=== PATIENT | male | born 1955 | race Caucasian/White ===

== ENCOUNTER 2017-09-11 14:47 | Outpatient (CLI) | payer BC ==
--- NOTE | 2017-09-11 21:57 | MRI ---
THORACIC SPINE MRI WITH AND WITHOUT CONTRAST: Clinical history: Muscle weakness, upper and lower extremity. Myelopathy. FINDINGS: There is a maintained vertebral body height and alignment. No acute disc space inflammation. Thoraci c spine cord is appropriate in caliber and contour. No expansile cord lesion of the thoracic spine o r evidence of intramedullary pathologic enhancement. There is a subcentimeter focus of oval shaped s ignal alteration on the posterior subcutaneous region most compatible with a Sebaceous cyst. This is located at the upper thorax. No significant central canal or foraminal stenosis. IMPRESSION: No acute abnormality of thoracic spine. POS: [facility]
--- NOTE | 2017-09-11 22:19 | MRI ---
LUMBAR SPINE MRI WITH AND WITHOUT CONTRAST: Indication: Weakness, lumbar spondylosis. FINDINGS: No acute marrow edema or compression deformity of the lumbar spine. No acute inflammation. Conus med ullaris demonstrates normal morphology terminating at the T12-L1 level. Mild ventral CSF effacement is the result of multilevel disc bulge formation without high grade central canal stenosis. At the L1-2 through L4-5 level, no high grade neural foraminal stenosis. At the L5-S1 level there is moderate right foraminal stenosis as a result of disc osteophyte complex and facet hypertrophy. This does crowd the traversing right L5 nerve root. No pathologic intramedullary enhancement of the conus medullaris or along the cauda equina. IMPRESSION: 1. Degenerative change of the lumbar spine as above. 2. Otherwise, no acute process is seen. POS: [facility]
--- NOTE | 2017-09-11 23:10 | MRI ---
MRI CERVICAL SPINE WITH AND WITHOUT CONTRAST: Clinical history: Muscle weakness. Cervical spondylosis. FINDINGS: There is mild interspersed intermedullary T2 hypertense cervical spinal cord without evidence of pos t contrast enhancement most consistent with a mild degree of hydrosyringomyelia. No abnormal cord ex pansion. There are mild multilevel disc bulges of the cervical spine without high grade central abbey l stenosis or significant cord deformity. Findings do result in mild ventral cord effacement, multil evel, within the cervical spine. No high grade neural foraminal stenosis. Mild multilevel bilateral neural foraminal narrowing as a result of uncinate process hypertrophy. There are no significant marrow signal abnormalities. There is partially imaged signal heterogeneity posterior paraspinal soft tissues of the upper thoracic region, incompletely evaluated. IMPRESSION: 1. Mild degenerative changes of the cervical spine without evidence of significant mass effect upon the cervical spine cord. 2. Evidence of mild hydrosyringomyelia. 3. No pathologic intramedullary enhancement. 4. There is mild signal alteration of the posterior paraspinal regions of the upper thorax. Correlat e with physical exam and if necessary, dedicated post contrast CT thorax may be performed. POS: [facility]
== END 2017-09-11 14:48 | disposition home or self-care (01) ==
LOC: MRI 14:47
PROVIDERS: ATTEND Psychiatry & Neurology Neurology
DX: M47.812 Spondylosis without myelopathy or radiculopathy, cervical region (principal); M62.81 Muscle weakness (generalized); M47.816 Spondylosis without myelopathy or radiculopathy, lumbar region; G95.0 Syringomyelia and syringobulbia
CPT/HCPCS: 72156; 72157; 72158

== ENCOUNTER 2017-10-03 10:50 | Inpatient (IN) | payer BC ==
[~2017-10-03 10:50] MED LIST: ISOVUE-370 76%-LOCM 1 ML ONE
[2017-10-03] MEDS ORDERED: diphenhydrAMINE 50 MG/ML VIAL IVP PRN (12:02)
[2017-10-03] MEDS ORDERED: Acetaminophen 500 MG TAB PO PRN (12:02)
[2017-10-03 12:09] VITALS: BMI 26.2
[2017-10-03] MEDS ORDERED: [UNRECOGNIZED DRUG - REMARK] FS SCH (12:15)
[2017-10-03 12:29] LABS: #Eosinphils 0.1 thou/uL (0.0-0.7); #Lymphocytes 1.3 thou/uL (1.20-3.40); #Monocytes 0.7 thou/uL (0.11-0.59); %Basophils 0.5 % (0.0-1.0); %Eosinophils 1.1 % (0.0-10.0); %Lymphocytes 14.1 % (21.0-51.0); Hematocrit 50.4 % (42.0-52.0); Mean Platelet Volume 7.6 fL (7.4-10.4); Red Blood Cell (RBC) Count 5.46 mill/uL (4.70-6.10); White Blood Cell (WBC) Count 9.2 thou/uL (4.8-10.8)
[2017-10-03 13:00] LABS: ALT (SGPT) 83 U/L (8-55); AST (SGOT) 111 U/L (5-34); Alkaline Phosphatase 49 U/L (40-150); Anion Gap 11 mmol/L (10-20); BUN (Urea Nitrogen) 13 mg/dL (8.4-25.7); Bilirubin, Total 0.7 mg/dL (0.2-1.2); Calc. Creatinine Clearance 187 mL/min (70-130); Calcium 9.6 mg/dL (7.8-10.44); Carbon Dioxide 30 mmol/L (22-29); Chloride 101 mmol/L (98-107); Estimated GFR-MDRD Greater than 90; Globulin 3.1 g/dL (2.4-3.5); Protein, Total 6.9 g/dL (6.0-8.3)
--- NOTE | 2017-10-03 15:14 | CT ---
CT OF THE CHEST AND ABDOMEN AND PELVIS WITH IV CONTRAST: INDICATION: History of neuromyopathy and generalized weakness. Evaluate for underlying malignancy. COMPARISON: None. FINDINGS: No suspicious pulmonary nodule grossly evident. There is a subpleural pulmonary nodule within the r ight lower lobe. There is a subsegmental volume loss within the left lower lobe. There is no enlar ged lymph node seen within the mediastinum, hilar, or axillary regions. There is a 3.6 cm hypodensi ty within the subcutaneous tissues overlying the right chest wall. Just anterior to the right pector shira major muscle and separate from the nipple areolar complex possibly reflecting a subcutaneous cy st-like abnormality such as sebaceous cyst. There is a 3 mm calculus within the inferior pole of th e right kidney. The adrenal glands, pancreas, and spleen are normal-appearing. The liver is normal-appearing. No l ymphadenopathy or free fluid is evident. There is a mild amount of retained stool within the colon. The prostate is mildly enlarged. There is scattered degenerative and osteoarthritic change. No definite acute osseous abnormality is evide nt. IMPRESSION: 1. No overt evidence of malignancy within the chest, abdomen, and pelvis. 2. There is an oval hypodense cyst-like abnormality seen within the subcutaneous tissues of the upp er outer aspect of the right chest wall separate from the right nipple areolar complex suspicious fo r a prominent sebaceous cyst. Recommend correlation with clinical exam. 3. Right nephrolithiasis. POS: [facility]
[2017-10-03] MEDS: Sodium Chloride 0.9% 500 ML IVPB PRN (15:59)
[2017-10-03] MEDS: Acetaminophen 500 MG TAB PO PRN (16:00)
[2017-10-03] MEDS: diphenhydrAMINE 50 MG/ML VIAL IVP PRN (16:00)
[2017-10-03] MEDS: OCTAGAM 10% 20 GM, OCTAGAM 10% 10 GM in Premix Bag 1 BAG IVPB SCH (16:58)
[2017-10-04 08:21] LABS: % Free PSA 26.2 % (.); Free PSA 0.97 ng/mL; Total PSA 3.7 ng/mL (0.0-4.0)
[2017-10-04] MEDS: Enoxaparin Sodium 40 MG/0.4 ML SYRINGE SC SCH (08:51)
[2017-10-04] MEDS: Sodium Chloride 0.9% 500 ML IVPB PRN (16:04)
[2017-10-04] MEDS: Acetaminophen 500 MG TAB PO PRN (18:29)
[2017-10-04] MEDS: diphenhydrAMINE 50 MG/ML VIAL IVP PRN (18:30)
[2017-10-04] MEDS: OCTAGAM 10% 20 GM, OCTAGAM 10% 10 GM in Premix Bag 1 BAG IVPB SCH (18:32)
--- NOTE | 2017-10-04 19:43 | PRG ---
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 He has tolerated the first dose of IVIG well without any complications. He d enies any headache, chest pain, palpitation, nausea, vomiting, abdominal pain, rash or fever or chil ls. He had a CT chest, abdomen, and pelvis done, which showed no sign of any malignancy. PHYSICAL EXAMINATION: VITAL SIGNS: Blood pressure of 120/73, pulse of 79, temperature of 97.7, respirations of 18, O2 sat s 96% on room air. GENERAL: Well-developed, well-nourished male in no apparent distress. RESPIRATORY: Clear to auscultation bilaterally. CARDIOVASCULAR: Regular rate and rhythm. NEUROLOGIC: Essentially unchanged when compared to yesterday. LABORATORY DATA: Reviewed, which included CBC, sed rate, CMP, B12, folate, PSA level, IgA level RYLAND , SSA, SSB and RPR, which is significant for AST of 111, ALT of 83. B12 level of 339 and total PSA level is 3.7, otherwise unremarkable. IMAGING STUDIES: CT of the chest, abdomen and pelvis, results were reviewed, which showed no overt evidence of malignancy within the chest, abdomen, and pelvis, right nephrolithiasis, otherwise unrem arkable. IMPRESSION AND PLAN: Necrotizing myopathy. Mr. Pichardo is a 62-year-old male who is being admitted for treatment for necrotizing myop athy. He has tolerated first day of IVIG well without any complications. We will continue with EVELINE G for a total of 2 more doses. I have consulted case management for inpatient rehabilitation placem ent. Continue PT, OT.
--- NOTE | 2017-10-04 23:31 | HP ---
DATE OF ADMISSION: 10/03/2017 REASON FOR ADMISSION: Necrotizing myopathy. HISTORY OF PRESENT ILLNESS: Mr. Pichardo is a pleasant 62-year-old male who had presented to my clinic in 06/2017 with a complaint of bilateral upper and lower extremity weakness. He had me ntioned that in 10/2016 while at work he was disconnecting hoses and twisted himself. This caused s evere pain in his neck and back. Since then, he has noted pain in his neck and lower back. He has also noticed increasing weakness in both upper and lower extremities. He has difficulty with climbi ng stairs, walking, or standing for a long period of time. He also has difficulty with holding his arms up above his shoulders. He also has noted head drop. He had an extensive workup done as an ou tpatient and had been referred to a neuromuscular specialist in [place] for muscle biopsy. A muscle biopsy confirmed that the patient has necrotizing myopathy. Per the recommendations by Dr. Justen garduno, a neuromuscular specialist at [facility], it was recommended that the patient have IVIG treatment fol lowed by high-dose steroids and immunosuppressive therapy. I had explained the findings of the resu lts of the muscle biopsy to the patient and explained the treatment plan. I am admitting this patie nt for treatment with IVIG treatment for his underlying necrotizing myopathy. PAST MEDICAL HISTORY: Significant for rhabdomyolysis. PAST SURGICAL HISTORY: Significant for cardiac catheterization. SOCIAL HISTORY: He denies smoking. He denies alcohol use. He denies illicit drug use. He is a tr uck lokie driver. He is . CURRENT MEDICATIONS: Include baclofen 10 mg t.i.d. ALLERGIES: No known drug allergies. REVIEW OF SYSTEMS: As mentioned in the HPI, otherwise negative. PHYSICAL EXAMINATION: VITAL SIGNS: Blood pressure of 122/77, pulse of 70, temperature of 97.6, respirations of 18, O2 sat s of 96% on room air. GENERAL: Well-developed, well-nourished male in no apparent distress. RESPIRATORY: Clear to auscultation bilaterally. CARDIOVASCULAR: Regular rate and rhythm. NEUROLOGIC: Mental status: The patient is awake, alert, oriented x3. Speech and language: Fluent speech. Cranial nerves: Pupils are 3 mm and reactive. Visual camara are intact. Extraocular mus cles are intact. No nystagmus is noted. Face is symmetric. Tongue and uvula are midline. Motor e xam showed normal tone and bulk with 4/5 strength in both upper extremities proximally and 5/5 stren gth distally. His strength in both lower extremities is 3/5 proximally and 4/5 distally. Sensory: Sensation is intact and symmetric. Deep tendon reflexes: 1-2+ reflexes in both upper and lower ex tremities. Babinski: Plantar responses flexion bilaterally. Coordination: Intact to finger-nose- finger tapping bilaterally. LABORATORY DATA: Reviewed. IMPRESSION: 1. Necrotizing myopathy. 2. Cervical and lumbar spondylosis. ASSESSMENT AND PLAN: Mr. Pichardo is a pleasant 62-year-old male who had presented with a 9-10 month history of gradual decline in muscle strength of both upper and lower extremities. He green d a muscle biopsy done, which confirmed the diagnosis of necrotizing myopathy. He is being admitted for treatment with IVIG. I will start him on IV immunoglobulin 400 mg/kg to be infused over 8 hour s daily for a total of 3 days. He will be premedicated with Tylenol 500 mg p.o. and Benadryl 25 mg IV prior to each infusion. He will be given 500 mL of normal saline IV fluid as a bolus prior to an d after each infusion. I will consult physical and occupational therapies. I will also place him o n deep venous thrombosis prophylaxis with Lovenox 40 mg subcu daily. I will obtain CT chest, abdome n, and pelvis with contrast to rule out malignancy. I will also obtain RYLAND, sed rate, CRP, IgA leve l, B12, folate, TSH, RPR.
[2017-10-05] MEDS: Enoxaparin Sodium 40 MG/0.4 ML SYRINGE SC SCH (08:26)
[2017-10-05] MEDS ORDERED: Acetaminophen 500 MG TAB PO PRN (10:21)
[2017-10-05] MEDS: diphenhydrAMINE 50 MG/ML VIAL IVP PRN (16:13)
[2017-10-05] MEDS: Acetaminophen 500 MG TAB PO PRN (16:13)
[2017-10-05] MEDS: Sodium Chloride 0.9% 500 ML IVPB PRN (16:14)
[2017-10-05] MEDS ORDERED: Ondansetron ODT 4 MG TAB PO PRN (17:00)
[2017-10-05] MEDS: OCTAGAM 10% 20 GM, OCTAGAM 10% 10 GM in Premix Bag 1 BAG IVPB SCH (17:15)
[2017-10-06] MEDS: Sodium Chloride 0.9% 500 ML IVPB PRN (01:38)
[2017-10-06] MEDS: Enoxaparin Sodium 40 MG/0.4 ML SYRINGE SC SCH (08:05)
[2017-10-07] MEDS: Enoxaparin Sodium 40 MG/0.4 ML SYRINGE SC SCH (07:52)
[2017-10-07] MEDS: predniSONE 20 MG TAB PO SCH (07:54)
[2017-10-07] MEDS: azaTHIOprine 50 MG TAB PO SCH ×2 (07:54→20:28)
[2017-10-08] MEDS: Enoxaparin Sodium 40 MG/0.4 ML SYRINGE SC SCH (08:11)
[2017-10-08] MEDS: azaTHIOprine 50 MG TAB PO SCH ×2 (09:28→20:37)
[2017-10-08] MEDS: predniSONE 20 MG TAB PO SCH (09:28)
--- NOTE | 2017-10-08 16:08 | CON ---
DATE OF SERVICE: 10/08/2017 SUBJECTIVE: The patient reports that he has not seen any significant improvement in his strength. He has some minimal discomfort mostly involving some joints. He is not very comfortable in the bed that he is sleeping in. He denies any difficulty with chewing or swallowing. He has been wearing a C-collar sporadically due to his neck weakness. He seems to be tolerating these treatments well. OBJECTIVE: On exam, he is alert and appropriate. His speech is fluent and clear. Cranial nerves a re intact other than neck flexion and extension are 3-/5. Muscle strength testing in the extremitie s shows some proximal weakness in the range of 4- both in the upper and muscle group, lower extremit y shows 3- hip flexion, ankle flexion is good bilaterally. He has been able to walk with the use of a walker. His necrotizing myopathy appears to be stable at least. He is not having any subjective side effect s to the medications. Awaiting rehab transfer.
[2017-10-09] MEDS: predniSONE 20 MG TAB PO SCH (09:00)
[2017-10-09] MEDS: Enoxaparin Sodium 40 MG/0.4 ML SYRINGE SC SCH (09:00)
[2017-10-09] MEDS: azaTHIOprine 50 MG TAB PO SCH ×2 (09:00→20:11)
[2017-10-09 20:43] VITALS: BP 118/71; TEMP 97.8
== END 2017-10-09 21:15 | DRG 93 ==
LOC: T4-A 10:50
PROVIDERS: ADMIT Psychiatry & Neurology Neurology; ATTEND Psychiatry & Neurology Neurology
PROC: 30233S1 Transfusion of Nonautologous Globulin into Peripheral Vein, Percutaneous Approach (ICD-10-PCS; principal; 2017-10-03)
DX: G72.81 Critical illness myopathy (principal); M47.892 Other spondylosis, cervical region; M47.896 Other spondylosis, lumbar region
CPT/HCPCS: 36415; 71260; 74177; 80053; 82607; 82746; 84153; 84154; 85025; 85652; 86038; 86140; 86235; 86780; A4216; G8978-GP-CK; G8979-GP-CI; G8987-GO-CJ; G8988-GO-CH; J1200; J1568; J1650; J7500; J7506

== ENCOUNTER 2017-12-05 16:33 | Inpatient (IN) | payer BC ==
[2017-12-05 16:54] VITALS: BMI 26.1
[2017-12-05] MEDS ORDERED: Acetaminophen 500 MG TAB PO PRN ×2 (17:50→18:40)
[2017-12-05] MEDS ORDERED: Sodium Chloride 0.9% 500 ML IVPB PRN (18:39)
[2017-12-05 18:44] LABS: #Basophils 0.1 thou/uL (0.0-0.2); #Lymphocytes 0.9 thou/uL (1.20-3.40); #Monocytes 0.5 thou/uL (0.11-0.59); #Neutrophils 12.4 thou/uL (1.40-6.50); %Basophils 0.5 % (0.0-1.0); %Eosinophils 0.1 % (0.0-10.0); %Lymphocytes 6.6 % (21.0-51.0); %Monocytes 3.5 % (0.0-10.0); %Neutrophils 89.4 % (42.0-75.0); Hemoglobin 16.6 g/dL (14.0-18.0); Mean Corpuscular HGB CONC 32.6 g/dL (32.0-36.0); Mean Corpuscular Hemoglobin 30.7 pg (27.0-31.0); Mean Corpuscular Volume 94.2 fl (80.0-94.0); Mean Platelet Volume 7.7 fL (7.4-10.4); Platelet Count 352 thou/uL (130-400); RBC Distribution Width 13.7 % (11.5-14.5); Red Blood Cell (RBC) Count 5.43 mill/uL (4.70-6.10); White Blood Cell (WBC) Count 13.9 thou/uL (4.8-10.8)
[2017-12-05 19:05] LABS: ALT (SGPT) 80 U/L (8-55); AST (SGOT) 85 U/L (5-34); Albumin 4.1 g/dL (3.5-5.0); Alkaline Phosphatase 51 U/L (40-150); Anion Gap 13 mmol/L (10-20); BUN (Urea Nitrogen) 17 mg/dL (8.4-25.7); Bilirubin, Total 0.6 mg/dL (0.2-1.2); Calc. Creatinine Clearance 157 mL/min (70-130); Calcium 9.8 mg/dL (7.8-10.44); Carbon Dioxide 30 mmol/L (22-29); Chloride 101 mmol/L (98-107); Estimated GFR-MDRD Greater than 90; Globulin 2.7 g/dL (2.4-3.5); Glucose 104 mg/dL (70-105); Potassium 3.9 mmol/L (3.5-5.1); Protein, Total 6.8 g/dL (6.0-8.3); Sodium 140 mmol/L (136-145)
[2017-12-05] MEDS: diphenhydrAMINE 50 MG/ML VIAL IVP PRN (20:07)
[2017-12-05] MEDS: OCTAGAM 10% 20 GM, OCTAGAM 10% 10 GM in Premix Bag 1 BAG IVPB SCH (20:59)
[2017-12-05] MEDS ORDERED: Prevnar 13-Val Conj/PF 0.5 ML SYRINGE IM ONE (21:00)
[2017-12-05] MEDS ORDERED: FLU VACC QS2017-18 36 mo. & older 0.5 ML SYRINGE IM ONE (21:00)
[2017-12-06] MEDS ORDERED: Acetaminophen 500 MG TAB PO PRN (07:00)
[2017-12-06] MEDS ORDERED: diphenhydrAMINE 50 MG/ML VIAL IVP PRN (07:00)
[2017-12-06] MEDS ORDERED: Sodium Chloride 0.9% 500 ML IVPB PRN (07:00)
[2017-12-06] MEDS ORDERED: OCTAGAM 10% 20 GM, OCTAGAM 10% 10 GM in Premix Bag 1 BAG IVPB SCH (09:00)
[2017-12-06] MEDS ORDERED: FLU VACC QS2017-18 36 mo. & older 0.5 ML SYRINGE IM ONE (09:00)
[2017-12-06] MEDS ORDERED: Prevnar 13-Val Conj/PF 0.5 ML SYRINGE IM ONE (09:00)
--- NOTE | 2017-12-06 19:28 | PRG ---
DATE OF SERVICE: 12/06/2017 SUBJECTIVE: Mr. Pichardo reports of doing well over the past 24 hours. He denies any headache, chest pain, palpitation, fever, chills, night sweats. He reports that after having the previous IVIG infu nori, he has noted improvement in his pain; however, there is no significant change in his strength. OBJECTIVE: VITAL SIGNS: Blood pressure 120/65, pulse of 70, temperature of 98.5, respirations of 18, O2 sats of 96% on room air. GENERAL: Well-developed, well-nourished male, in no apparent distress. RESPIRATORY: Clear to auscultation bilaterally. CARDIOVASCULAR: Regular rate and rhythm. NEUROLOGICAL: Essentially unchanged. LABORATORY DATA: Labs are reviewed, which included CBC and CMP which is significant for WBC of 13.9, AST of 85, ALT of 80. IMPRESSION: 1. Necrotizing myopathy. 2. Elevated transaminases. 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 He is being admitted for treatment with IVIG. He has been tolerating the IVIG well without any com plications. I had rechecked the CBC and CMP today which had shown elevation of AST and ALT from his baseline, this 2-3 times the normal range. For this reason, I will discontinue azathioprine. I have advised him to continue prednisone 60 mg daily. I will recheck LFTs in 2 weeks and if the transamin ases are coming back to normal, then start him on CellCept 500 mg b.i.d. He will receive his second round of IVIG today, and after completion on tomorrow, he should be able to discharge to home. I elizabeth l see him in my clinic in 4 weeks.
[2017-12-06] MEDS: diphenhydrAMINE 50 MG/ML VIAL IVP PRN (20:09)
[2017-12-06] MEDS: OCTAGAM 10% 20 GM, OCTAGAM 10% 10 GM in Premix Bag 1 BAG IVPB SCH (20:42)
--- NOTE | 2017-12-07 01:25 | HP ---
DATE OF SERVICE: 12/05/2017 REASON FOR ADMISSION: Necrotizing myopathy. HISTORY OF PRESENT ILLNESS: Mr. Pichardo is a pleasant 62-year-old male with necrotizing my opathy. He is being admitted for exacerbation of symptoms and treatment with IVIG. Patient was rece ntly diagnosed with necrotizing myopathy, has undergone IVIG treatment in end of September for a total of 3 days. He was started on prednisone 60 mg daily, and azathioprine 50 mg b.i.d. He has undergon e inpatient and outpatient rehabilitation. He is being admitted for second round of IVIG. Patient d enies any headache, fever, chills, chest pain, palpitation, nausea, vomiting, abdominal pain. He rep orts of no significant change in his strength. Since his last admission, he reports that his physica l therapist has noted some improvement in his strength since the initial therapy. PAST MEDICAL HISTORY: Significant for necrotizing myopathy and rhabdomyolysis. PAST SURGICAL HISTORY: Significant for cardiac catheterization. SOCIAL HISTORY: Denies smoking, alcohol use, or illicit drug use. 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 CURRENT MEDICATIONS: Include prednisone 60 mg daily, azathioprine 50 mg b.i.d. and baclofen 10 mg t. i.d. ALLERGIES: No known drug allergies. FAMILY HISTORY: Noncontributory. REVIEW OF SYSTEMS: As mentioned above in the HPI, otherwise negative. PHYSICAL EXAMINATION: VITAL SIGNS: Blood pressure 116/74, pulse of 89, temperature of 97.6, respirations of 18, O2 sats of 96% on room air. GENERAL: Well-developed, well-nourished male in no apparent distress. RESPIRATORY: Clear to auscultation bilaterally. CARDIOVASCULAR: Regular rate and rhythm. NEUROLOGIC: Mental status: The patient is awake, alert, oriented x3. Speech and language: Fluent speech. Cranial nerves: Pupils are 3 mm and reactive. Visual camara are intact. Extraocular muscl es are intact. No nystagmus is noted. Face is symmetric. Tongue and uvula are midline. Motor exam showed normal tone and bulk with a 5-/5 strength in the distal upper extremities and 3/5 strength in the proximal upper extremities. His strength in the lower extremities is 3/5 bilaterally, somewhat worse on the right lower extremity than the left lower extremity. Sensory: Sensation is intact and symmetric. Deep tendon reflexes 1+ reflex in both upper and lower extremities. Babinski: Plantar r esponses flexion bilaterally. Coordination is intact to [id number] and finger tapping bilate rally. LABORATORY DATA: Reviewed. IMPRESSION: Necrotizing myopathy. PLAN: Mr. Pichardo is a pleasant 62-year-old male who has been admitted with necrotizing my opathy. I will start him on IVIG 400 mg/kg to be infused over 8 hours, he will be premedicated with Tylenol and Benadryl. He will be infused with 500 mL of normal saline before and after each IVIG inf usion. He will be given 2 rounds of IVIG. He will be placed on DVT prophylaxis. I will consult phy sical therapy once he completes 2 days of IVIG. He will be discharged to home with outpatient appoin tment in my clinic in 4 weeks.
[2017-12-07 08:42] VITALS: BP 121/66; TEMP 97.7
== END 2017-12-07 11:54 | disposition home or self-care (01) | DRG 93 ==
LOC: T4-B 16:33
PROVIDERS: ADMIT Psychiatry & Neurology Neurology; ATTEND Psychiatry & Neurology Neurology
PROC: 30233S1 Transfusion of Nonautologous Globulin into Peripheral Vein, Percutaneous Approach (ICD-10-PCS; principal; 2017-12-05)
DX: G72.81 Critical illness myopathy (principal)
CPT/HCPCS: 36415; 80053; 85025; G8978-GP-CK; G8979-GP-CI; J1200; J1568

== ENCOUNTER 2018-01-24 14:25 | Inpatient (IN) | payer BC ==
[2018-01-24 16:03] LABS: #Lymphocytes 1.1 thou/uL (1.20-3.40); #Monocytes 0.5 thou/uL (0.11-0.59); %Basophils 0.2 % (0.0-1.0); %Eosinophils 0.4 % (0.0-10.0); %Lymphocytes 8.5 % (21.0-51.0); %Monocytes 3.7 % (0.0-10.0); %Neutrophils 87.2 % (42.0-75.0); Hemoglobin 16.3 g/dL (14.0-18.0); Mean Corpuscular HGB CONC 33.1 g/dL (32.0-36.0); Mean Corpuscular Hemoglobin 30.5 pg (27.0-31.0); Mean Corpuscular Volume 92.1 fl (80.0-94.0); Mean Platelet Volume 7.6 fL (7.4-10.4); Platelet Count 322 thou/uL (130-400); RBC Distribution Width 13.1 % (11.5-14.5); Red Blood Cell (RBC) Count 5.33 mill/uL (4.70-6.10); White Blood Cell (WBC) Count 12.6 thou/uL (4.8-10.8)
[2018-01-24 16:27] LABS: ALT (SGPT) 113 U/L (8-55); AST (SGOT) 100 U/L (5-34); Alkaline Phosphatase 54 U/L (40-150); Anion Gap 12 mmol/L (10-20); BUN (Urea Nitrogen) 16 mg/dL (8.4-25.7); Bilirubin, Total 0.6 mg/dL (0.2-1.2); Calc. Creatinine Clearance 0 mL/min (70-130); Calcium 9.8 mg/dL (7.8-10.44); Carbon Dioxide 30 mmol/L (22-29); Chloride 102 mmol/L (98-107); Estimated GFR-MDRD Greater than 90; Globulin 2.8 g/dL (2.4-3.5); Glucose 95 mg/dL (70-105); Potassium 4.2 mmol/L (3.5-5.1); Protein, Total 6.8 g/dL (6.0-8.3); Sodium 140 mmol/L (136-145)
[2018-01-24] MEDS ORDERED: Acetaminophen 500 MG TAB PO PRN (17:34)
[2018-01-24] MEDS: diphenhydrAMINE 50 MG/ML VIAL IVP SCH (20:13)
[2018-01-24] MEDS: Acetaminophen 500 MG TAB PO SCH (20:14)
--- NOTE | 2018-01-24 20:45 | HP ---
DATE OF SERVICE: 01/24/2018 REASON FOR ADMISSION: Necrotizing myopathy. HISTORY OF PRESENT ILLNESS: Mr. Pichardo is a pleasant 62-year-old male with history of nec rotizing myopathy, is being admitted for treatment with IVIG. The patient reports that he has noted some improvement of his strength in lower extremities since undergoing IVIG as well as being on predn isone. He denies any chest pain, palpitation, nausea, vomiting, abdominal pain, lightheadedness, or dizziness. He has continued to undergo aggressive physical therapy as an outpatient where they have noticed that his strength is slowly improving. PAST MEDICAL HISTORY: Significant for necrotizing myopathy and rhabdomyolysis. PAST SURGICAL HISTORY: Significant for cardiac catheterization. SOCIAL HISTORY: He denies smoking, alcohol use, or illicit drug use. He is . He is a truck body repairer. CURRENT MEDICATIONS: Include prednisone 40 mg daily, and baclofen 10 mg t.i.d. ALLERGIES: No known drug allergies. FAMILY HISTORY: Noncontributory. REVIEW OF SYSTEMS: As mentioned above in the HPI is negative. PHYSICAL EXAMINATION: VITAL SIGNS: Blood pressure of 120/80, pulse of 90, temperature of 98.5, respirations of 18, O2 sats of 95% on room air. GENERAL: Well-developed, well-nourished male in no apparent distress. RESPIRATORY: Clear to auscultation bilaterally. CARDIOVASCULAR: Regular rate and rhythm. NEUROLOGIC: Mental status: The patient is awake, alert, oriented x3. Speech and language: Fluent speech. Cranial nerves: Pupils are 3 mm and reactive. Visual camara are intact. External muscles are intact. No nystagmus is noted. Face is symmetric with normal facial strength. Tongue and uvula are midline. Motor exam showed normal tone and bulk with a 3/5 strength in both upper extremities a nd both lower extremities. Sensory: Sensation is intact and symmetric. Deep tendon reflexes hypore flexic in both upper and lower extremities. Babinski: Plantar responses flexion bilaterally. Coord ination intact to [id number] and finger tapping bilaterally. Gait and Romberg: Romberg is n egative. Gait showed wide based gait requires a walker for support. IMPRESSION: 1. Necrotizing myopathy. 2. Generalized weakness. ASSESSMENT AND PLAN: Mr. Pichardo is a pleasant 62-year-old male with a history of necrotiz ing myopathy, is being admitted for treatment with IVIG. He will receive 400 mg/kg of IVIG over 8 ho urs daily for a total of 2 doses. I will premedicate him with Tylenol and Benadryl. He will also be given 500 mL normal saline IV bolus before and after each infusion. Once the IVIG is completed, he will be discharged to home with outpatient followup appointment. I will decrease his prednisone to 4 0 mg daily from 50 mg that he is currently doing.
[2018-01-24] MEDS: Sodium Chloride 0.9% 500 ML IV SCH (20:50)
[2018-01-24] MEDS: OCTAGAM 10% 20 GM, OCTAGAM 10% 10 GM in Admixture Fee 1 EACH IVPB SCH (21:23)
[2018-01-25] MEDS: Sodium Chloride 0.9% 500 ML IV SCH ×2 (00:02→20:15)
[2018-01-25] MEDS: predniSONE 20 MG TAB PO SCH (07:41)
[2018-01-25] MEDS: Acetaminophen 500 MG TAB PO SCH (20:15)
[2018-01-25] MEDS: diphenhydrAMINE 50 MG/ML VIAL IVP SCH (20:16)
[2018-01-25] MEDS: OCTAGAM 10% 20 GM, OCTAGAM 10% 10 GM in Admixture Fee 1 EACH IVPB SCH (21:29)
[2018-01-26] MEDS: Sodium Chloride 0.9% 500 ML IV SCH ×2 (00:04→05:15)
[2018-01-26 07:39] VITALS: BP 120/63; TEMP 98
[2018-01-26] MEDS: predniSONE 20 MG TAB PO SCH (08:10)
--- NOTE | 2018-01-26 14:25 | PRG ---
DATE OF SERVICE: 01/25/2018 SUBJECTIVE: Mr. Pichardo reports of no significant roving changer the past 24 hours. He denies any noti ceable side effects from IVIG. He denies any headaches, chest pain, palpitation, nausea, vomiting, l ightheadedness or dizziness. PHYSICAL EXAMINATION: VITAL SIGNS: Blood pressure of 115/72, pulse of 96, temperature of 98.8, respirations of 18, O2 sats 96% on room air. GENERAL: Well-developed, well-nourished male in no apparent distress. RESPIRATORY: Clear to auscultation bilaterally. CARDIOVASCULAR: Regular rate and rhythm. NEUROLOGIC: Unchanged from yesterday. IMPRESSION: 1. Necrotizing myopathy. 2. Generalized weakness. ASSESSMENT AND PLAN: Mr. Pichardo is a pleasant 62-year-old male admitted with necrotizing myopathy here for IVIG treatment. He has received 1 day of IVIG without any complications. I will c ontinue him on IVIG for 1 more dose and then plan to discharge home tomorrow morning. He will be ref erred to a GI specialist as an outpatient as his AST and ALT continue to be elevated.
--- NOTE | 2018-01-26 22:49 | DIS ---
DATE OF ADMISSION: 01/24/2018 DATE OF DISCHARGE: 01/26/2018 ADMISSION DIAGNOSES: 1. Necrotizing myopathy. 2. Generalized weakness. DISCHARGE DIAGNOSES: 1. Necrotizing myopathy. 2. Generalized weakness. PROCEDURES DURING ADMISSION: None. CONSULTATION DURING ADMISSION: None. BRIEF HOSPITAL COURSE: Mr. Pichardo is a pleasant 62-year-old male admitted with a history of necrotizing myopathy admitted for 2 days of IVIG therapy. After admission, I had started him on I VIG 400 mg/kg to be infused over 8 hours daily for total of 2 days. He received IVIG without any com plications. He was given Benadryl 25 mg IV and Tylenol 500 mg p.o. before each IVIG infusion. He wa s also given IV normal saline 500 mL bolus before and after each infusion. He tolerated the procedur e well without any complications. The patient had a CBC and CMP done on admission, which were signif icant for AST of 100 and ALT of 113. As his levels continued to be elevated even though he has been off Imuran for more than 4 weeks now. I had decided that he needs to be evaluated by GI specialist a s outpatient. He is being referred to GI specialist for which he has an appointment on next , which I have advised him to follow up as planned. I have also lowered his prednisone to 40 mg onc e daily. He will follow up in my clinic in 2-3 weeks. He will have another round of IVIG on 02/26. DISCHARGE PLAN: Discharge the patient home. CONDITION: Stable. ACTIVITY: Ad kvng. DISCHARGE MEDICATIONS: Decrease prednisone to 40 mg daily. DISPOSITION: Discharge the patient home.
== END 2018-01-26 14:01 | disposition home or self-care (01) | DRG 93 ==
LOC: T4-B 14:25
PROVIDERS: ADMIT Psychiatry & Neurology Neurology; ATTEND Psychiatry & Neurology Neurology
PROC: 3E033WL Introduction of Immunosuppressive into Peripheral Vein, Percutaneous (ICD-10-PCS; principal; 2018-01-24)
DX: G72.81 Critical illness myopathy (principal); R53.1 Weakness
CPT/HCPCS: 36415; 80053; 85025; J1200; J1568; J7050; J7506

== ENCOUNTER 2018-02-08 07:45 | Outpatient (CLI) | payer BC ==
--- NOTE | 2018-02-08 09:44 | ULT ---
HEPATIC ULTRASOUND WITH DOPPLER: (ZHENG SCALE, COLOR FLOW, AND SPECTRAL DOPPLER) Date: 02/08/18 HISTORY: Elevated LFTs. FINDINGS: The liver demonstrates homogeneous echotexture without focal mass or intrahepatic ductal dilatation. The liver measures 15.6 cm in length. The spleen is normal measuring 11.2 cm in length. There is trac e sludge in the gallbladder with gallbladder wall at upper limits of normal and thickness at 3.0 mm. No pericholecystic fluid is seen. No shadowing gallstones are identified. The common duct measures 6. 0 mm in diameter. The pancreas is not well visualized due to overlying bowel gas. No free fluid is se en in Morison's pouch. There is normal flow and spectral waveforms of the hepatic, portal, and spleni c vasculature. IMPRESSION: 1. Normal sonographic appearance of the liver. 2. Small amount of gallbladder sludge. POS: [facility]
== END 2018-02-08 07:46 | disposition home or self-care (01) ==
LOC: ULT 07:45
PROVIDERS: ATTEND Internal Medicine Gastroenterology
DX: R74.8 Abnormal levels of other serum enzymes (principal); K82.8 Other specified diseases of gallbladder
CPT/HCPCS: 76705

== ENCOUNTER 2018-02-26 07:30 | Day surgery (SDC) | payer BC ==
[2018-02-22 09:24] VITALS: BMI 28.1
[2018-02-26 07:53] LABS: #Basophils 0.2 thou/uL (0.0-0.2); #Eosinphils 0.2 thou/uL (0.0-0.7); #Lymphocytes 3.9 thou/uL (1.20-3.40); #Neutrophils 6.4 thou/uL (1.40-6.50); %Basophils 1.4 % (0.0-1.0); %Eosinophils 1.9 % (0.0-10.0); %Lymphocytes 33.4 % (21.0-51.0); %Monocytes 8.7 % (0.0-10.0); %Neutrophils 54.6 % (42.0-75.0); Mean Corpuscular Hemoglobin 30.2 pg (27.0-31.0); Mean Corpuscular Volume 94.5 fl (80.0-94.0); Mean Platelet Volume 7.4 fL (7.4-10.4); Platelet Count 326 thou/uL (130-400); RBC Distribution Width 12.2 % (11.5-14.5); White Blood Cell (WBC) Count 11.8 thou/uL (4.8-10.8)
[2018-02-26 08:10] LABS: PTT 33.7 SEC (22.9-36.1); Prothrombin Time 12.8 SEC (12.0-14.7)
[2018-02-26] MEDS ORDERED: Prevnar 13-Val Conj/PF 0.5 ML SYRINGE IM ONE (09:00)
[2018-02-26] MEDS ORDERED: Midazolam HCl 2 mg/2 ml Vial ONE (09:00)
[2018-02-26] MEDS ORDERED: FLU VACC QS2017-18 36 mo. & older 0.5 ML SYRINGE IM ONE (09:00)
[2018-02-26] MEDS ORDERED: Fentanyl 100 MCG/2 ML VIAL ONE (09:00)
[2018-02-26] MEDS ORDERED: Sodium Bicarbonate 2.5 MEQ/5 ML VIAL ONE (09:00)
[2018-02-26 10:34] VITALS: BP 125/84; TEMP 98.1
--- NOTE | 2018-02-26 11:38 | ULT ---
LIMITED UPPER ABDOMINAL ULTRASOUND: Clinical history: Elevated liver function enzymes. Patient presents for evaluation for hepatic biopsy . Evaluation for hepatic biopsy. FINDINGS: Real-time sonography of the upper abdomen performed. An adequate percutaneous approach for liver biop sy by ultrasound is not feasible based on liver positioning. The liver is not reliably visualized wit hin substernal or right lateral abdominal approach. Patient will be transferred to CT to undergo furt her assessment. IMPRESSION: Limited upper abdominal ultrasound, as above. Reference the separate report from CT guided procedure for additional details. POS: [facility]
--- NOTE | 2018-02-26 12:13 | CT ---
CT GUIDED LIVER BIOPSY: CLINICAL HISTORY: Elevated liver function enzymes. PROCEDURE: Informed consent was obtained from the patient. The patient was escorted to the CT procedural suite and placed in a supine position. The liver was imaged with electric organ inspector and repairer CT imaging. An appropriate transcu taneous route to the anterior aspect of the left hepatic lobe was performed. The patient's skin was then marked and prepped and draped in standard sterile fashion. Topical anesthesia was achieved anand g with conscious sedation provided by the radiology nurse. A small skin incision was made through wh ich a 17-gauge trocar was advanced to the leading edge of the left hepatic lobe. The inner stylette was removed and was exchanged for an 18-gauge biopsy needle. One core specimen was then acquired of the left hepatic lobe. The specimen was placed into sealed formalin container which was sent to path ology for further analysis. All devices were removed from the patient. The patient tolerated the pr ocedure without evidence of complication. Post procedure imaging revealed expected postprocedural fi ndings without significant abnormality. IMPRESSION: Technically successful CT-guided percutaneous biopsy of the left hepatic lobe. Pathology results are pending. POS: [facility]
--- NOTE | 2018-02-27 11:55 | CT ---
CT GUIDED LIVER BIOPSY: CLINICAL HISTORY: Elevated liver function enzymes. PROCEDURE: Informed consent was obtained from the patient. The patient was escorted to the CT procedural suite and placed in a supine position. The liver was imaged with getter welder CT imaging. An appropriate transcu taneous route to the anterior aspect of the left hepatic lobe was performed. The patient's skin was then marked and prepped and draped in standard sterile fashion. Topical anesthesia was achieved anand g with conscious sedation provided by the radiology nurse. A small skin incision was made through wh ich a 17-gauge trocar was advanced to the leading edge of the left hepatic lobe. The inner stylette was removed and was exchanged for an 18-gauge biopsy needle. One core specimen was then acquired of the left hepatic lobe. The specimen was placed into sealed formalin container which was sent to path ology for further analysis. All devices were removed from the patient. The patient tolerated the pr ocedure without evidence of complication. Post procedure imaging revealed expected postprocedural fi ndings without significant abnormality. IMPRESSION: Technically successful CT-guided percutaneous biopsy of the left hepatic lobe. Pathology results are pending.
== END 2018-02-26 12:00 | disposition home or self-care (01) ==
LOC: ULT 07:30
PROVIDERS: ATTEND Internal Medicine Gastroenterology
PROC: 0FB23ZX Excision of Left Lobe Liver, Percutaneous Approach, Diagnostic (ICD-10-PCS; principal; 2018-02-26)
PROC: BF25ZZZ Computerized Tomography (CT Scan) of Liver (ICD-10-PCS; principal; 2018-02-26)
DX: K76.0 Fatty (change of) liver, not elsewhere classified (principal); G72.81 Critical illness myopathy; Z79.52 Long term (current) use of systemic steroids
CPT/HCPCS: 36415; 47000; 76705; 77012; 85025; 85610; 85730; 88307; 88313; 99152; 99153; J2250; J3010